=== PATIENT | male | born 1950 | race Two or more races ===

== ENCOUNTER 2018-10-14 08:16 | Outpatient (CLI) | payer MEDICARE, BC ==
[~2018-10-14] VITALS: Ht 182.9 cm; Wt 79.8 kg
[2018-10-14] MEDS ORDERED: CT SWABBABLE VALVE TRANS SET 1 EA INFUS.SET MC ONE (08:41)
[2018-10-14] MEDS ORDERED: IOHEXOL-350 100 ML VIAL IV ONE (08:41)
[2018-10-14] MEDS ORDERED: IV NS 0.9% 250 ML IV ONE (08:42)
[2018-10-14] MEDS ORDERED: NITROGLYCERIN 0.4 MG/TAB BOTTLE SL ONE (09:30)
[2018-10-14] MEDS ORDERED: METOPROLOL TARTRATE INJ 5 MG/5 ML AMPUL IVP ONE (09:30)
[2018-10-14] MEDS ORDERED: IV NS 0.9% 500 ML IV ONE (09:30)
[2018-10-14 09:50] LABS: CREATININE 1.1 mg/dL (0.6-1.3); POTASSIUM 4.5 mmol/L (3.5-5.1)
[2018-10-14] MEDS ORDERED: NITROGLYCERIN 4.9 GM SPRAY ONE (09:52)
== END 2018-10-14 23:59 | disposition home or self-care (01) ==
LOC: CT 08:16
PROVIDERS: ATTEND Internal Medicine Interventional Cardiology
DX: I65.21 Occlusion and stenosis of right carotid artery (principal); I25.10 Atherosclerotic heart disease of native coronary artery without angina pectoris; J43.8 Other emphysema; I10 Essential (primary) hypertension; R94.31 Abnormal electrocardiogram [ECG] [EKG]
CPT/HCPCS: 36415; 75574; 80048; 93005; J7050; Q9967